=== PATIENT | male | born 1995 | race Caucasian/White ===

== ENCOUNTER 2019-03-24 18:31 | Emergency (ER) | payer OTHER ==
[2019-03-24 18:39] VITALS: BP 122/76; PULSE 91; RESP 20; TEMP 98.4
[2019-03-24] MEDS ORDERED: IBUPROFEN 600 MG TAB PO STA (18:53)
[2019-03-24] MEDS ORDERED: CYCLOBENZAPRINE 10MG STARTER 3 TAB BTL PO STA (18:53)
--- NOTE | 2019-03-24 18:53 | ED ---
Back Pain HPI - General Chief Complaint: Back Pain/Injury Stated Complaint: back injury, [facility] Time Seen by Provider: 03/24/19 18:41 Source: patient Limitations: no limitations - History of Present Illness Initial Comments: 23-year-old male presenting after injuring his back while playing basketball. He states the injury occurred around 5:30 PM today. States he went up to block somebody's shot when he saw them falling so he tried to fall with them. He states he felt a sudden strain in his back. Since then he's been having left lateral lumbar back pain. He denies any numbness, weakness, saddle anesthesia, or inability to ambulate. He took no medications prior to arrival. He denies any medical problems. He states his work, where he was playing basketball, required him to come in. - Related Data Allergies Allergy/AdvReac Type Severity Reaction Status Date / Time No Known Allergies Allergy Verified 03/24/19 18:39 Review of Systems ROS Statement: Those systems with pertinent positive or pertinent negative responses have been documented in the HPI. Review of Systems Constitutional: Denies fever, chills Eyes: Denies change in vision, Denies pain Ears, nose, mouth, throat: Denies headaches, Denies sore throat Cardiovascular: Denies chest pain. Denies palpitations Respiratory: Denies shortness of breath, Denies cough Gastrointestinal: Denies abdominal pain. Denies nausea, vomiting, diarrhea. Genitourinary: Denies hematuria, Denies infections Musculoskeletal: Positive pain, Denies swelling Integumentary: Denies rash Neurological: Denies headache, focal weakness, focal numbness Psychiatric: Denies anxiety, Denies depression Hematologic/Lymphatic: Denies easy bleeding or bruising ROS Other: All systems not noted in ROS Statement are negative. Past Medical History Past Medical History: No Reported History History of Any Multi-Drug Resistant Organisms: None Reported Additional Past Surgical History / Comment(s): nasal teeth Past Psychological History: No Psychological Hx Reported Smoking Status: Never smoker Past Alcohol Use History: None Reported Past Drug Use History: None Reported General Exam - General Exam Comments Initial Comments: General: Awake, alert, No acute Distress HENT: Normocephalic. Atraumatic Eyes: PERRL. EOMI. No scleral icterus. No injected conjunctiva Neck: Full ROM Chest/Lungs: Clear to auscultation bilaterally. No wheezing, rhonchi, or rales Cardiac: Regular rate, rhythm. No murmurs or rubs Abdomen/GI: Soft, nontender, nondistended. No rebound, guarding, or rigidity. Musculoskeletal: Full ROM. TTP at left lateral lumbar region with paraspinal spasm. No midline C/T/L pain. No lower extremity weakness. L1-S2 sensation intact bilaterally. Non-ataxic gait. Pain exacerbated with left straight leg raise. Skin: Warm, dry, intact Neurologic: A/Ox3, no weakness, no sensory deficit, no abnormal gait, no coordination deficit Limitations: no limitations Course Vital Signs 03/24/19 18:34 Temperature 98.4 F Pulse Rate 91 Respiratory 20 Rate Blood Pressure 122/76 O2 Sat by Pulse 98 Oximetry Medical Decision Making - Medical Decision Making 3-year-old male presenting with back pain after playing basketball. On initial exam the patient is awake, alert, no acute distress. VSS. Patient has no midline back pain, did not have any direct trauma to his back, has no symptoms concerning for cauda equina syndrome such as saddle anesthesia or bowel or bladder retention. His physical exam is unremarkable except for his paralumbar spasm. No imaging indicated at this time. I discussed with the patient returning to the emergency department should he develop lower extremity weakness or numbness, inability to urinate or move his bowels, or have any saddle anesthesia. Patient verbalized understanding and was agreeable to plan. He was given a Flexeril starter pack and Motrin while in the department. He was also provided with a work note and documentation to remain off physical activity for the next 2 days. He was instructed not to drive or operate heavy machinery while taking the Flexeril. Disposition Clinical Impression: Strain of lumbar region Disposition: HOME SELF-CARE Condition: Poor Instructions (If sedation given, give patient instructions): Acute Low Back Pain (ED) Additional Instructions: Return to emergency department if you have weakness in her lower legs, numbness, or you have are unable to urinate or have a bowel movement Is patient prescribed a controlled substance at d/c from ED?: No Referrals: Mary Ann Reid DO [Primary Care Provider] - 1-2 days
== END 2019-03-24 19:06 | disposition home or self-care (01) ==
LOC: EC 18:31
DX: S39.012A Strain of muscle, fascia and tendon of lower back, initial encounter (principal); X58.XXXA Exposure to other specified factors, initial encounter; Y93.67 Activity, basketball; Y92.89 Other specified places as the place of occurrence of the external cause
CPT/HCPCS: 99283

== ENCOUNTER 2019-10-12 17:36 | Emergency (ER) | payer OTHER ==
[2019-10-12 17:40] VITALS: RESP 18
[2019-10-12] MEDS ORDERED: ACETAMINOPHEN TAB 500 MG TAB PO STA (18:20)
--- NOTE | 2019-10-12 18:24 | ED ---
General Adult HPI - General Chief complaint: Nausea/Vomiting/Diarrhea Stated complaint: dehyration Time Seen by Provider: 10/12/19 17:50 Source: patient, RN notes reviewed Mode of arrival: ambulatory Limitations: no limitations - History of Present Illness Initial comments: 24-year-old male presents to the emergency department for a chief complaint of s ore throat. Patient states that he has had a sore throat since yesterday. States that the sore throat did improve today. States he has also been very congested. Patient states he had a fever of 101 last night and this morning it was 103. Patient took 800 mg of Motrin prior to arrival. Patient admits to mild cough. Patient had some mild chest pain yesterday that has improved today. Patient has no other complaints at this time including shortness of breath, abdominal pain, nausea or vomiting, headache, or visual changes. - Related Data Previous Rx's Medication Instructions Recorded Ondansetron [Zofran ODT] 4 mg PO Q8HR PRN #15 tab 10/12/19 Allergies Allergy/AdvReac Type Severity Reaction Status Date / Time No Known Allergies Allergy Verified 10/12/19 17:40 Review of Systems ROS Statement: Those systems with pertinent positive or pertinent negative responses have been documented in the HPI. ROS Other: All systems not noted in ROS Statement are negative. Past Medical History Past Medical History: No Reported History History of Any Multi-Drug Resistant Organisms: None Reported Additional Past Surgical History / Comment(s): nasal surgery, teeth pulled Past Psychological History: No Psychological Hx Reported Smoking Status: Never smoker Past Alcohol Use History: None Reported Past Drug Use History: None Reported General Exam Limitations: no limitations General appearance: alert, in no apparent distress Head exam: Present: atraumatic, normocephalic, normal inspection Eye exam: Present: normal appearance, PERRL, EOMI. Absent: scleral icterus, conjunctival injection, periorbital swelling ENT exam: Present: normal exam, normal oropharynx (Patient has had tonsillectomy. Throat is mildly erythematous.), mucous membranes moist, TM's normal bilaterally, normal external ear exam Neck exam: Present: normal inspection, full ROM. Absent: tenderness, meningismus, lymphadenopathy Respiratory exam: Present: normal lung sounds bilaterally. Absent: respiratory distress, wheezes, rales, rhonchi, stridor Cardiovascular Exam: Present: regular rate, normal rhythm, normal heart sounds. Absent: systolic murmur, diastolic murmur, rubs, gallop, clicks GI/Abdominal exam: Present: soft, normal bowel sounds. Absent: distended, tenderness, guarding, rebound, rigid Neurological exam: Present: alert Psychiatric exam: Present: normal affect, normal mood Course Vital Signs 10/12/19 17:38 Temperature 99.8 F H Pulse Rate 88 Respiratory 18 Rate Blood Pressure 133/80 O2 Sat by Pulse 98 Oximetry EKG Findings - EKG Comments: EKG Findings:: Normal sinus rhythm, ventricular rate 74, NC interval 138, QTC 426 Medical Decision Making - Medical Decision Making Patient presents with a low-grade fever of 99.8. He is well-appearing, nontoxic. Denies any neck stiffness or pain. Physical exam is unremarkable. Oropharynx minimally erythematous. There is some postnasal drip noted. No tonsillar exudates. Lungs are clearbilaterally. No nuchal rigidity or neck stiffness. Influenza and strep were negative. Chest x-ray shows a normal chest. EKG was obtained which shows a normal sinus rhythm with a ventricular rate of 74. Patient reevaluated. He does feel a little better after given Tylenol. Discussed with patient that he likely has a viral syndrome. He is also some nausea so will be given Zofran to help remain hydrated. Discussed following up with primary care in 1-2 days. Discussed with patient to monitor himself and if he is not improving in next couple days to return to the emergency department or to return if he has having worsening symptoms prior to that time. - Lab Data Lab Results 10/12/19 10/12/19 Range/Units 18:17 18:17 Influenza Type A RNA Not Detected (Not Detectd) Influenza Type B (PCR) Not Detected (Not Detectd) Group A Strep Rapid Negative (Negative) Disposition Clinical Impression: Viral syndrome Disposition: HOME SELF-CARE Condition: Good Instructions (If sedation given, give patient instructions): Viral Syndrome (ED) Additional Instructions: Please try small sips of fluids to stay hydrated such as Gatorade. Take Zofran as needed for nausea. Alternate Motrin and Tylenol up to every 3 hours as needed for fever. You can take up to 800 mg of Motrin at a time or up to 1000 mg of Tylenol. If you're having worsening symptoms over the next couple days or if symptoms do not improve return to the emergency department for further evaluation. Prescriptions: Ondansetron [Zofran ODT] 4 mg PO Q8HR PRN #15 tab PRN Reason: Nausea Is patient prescribed a controlled substance at d/c from ED?: No Referrals: Mary Ann Reid DO [Primary Care Provider] - 1-2 days Time of Disposition: 19:20
--- NOTE | 2019-10-12 18:45 | XR ---
EXAMINATION TYPE: XR chest 2V DATE OF EXAM: 10/12/2019 COMPARISON: NONE HISTORY: Epigastric pain TECHNIQUE: Frontal and lateral views of the chest are obtained. FINDINGS: Heart and mediastinum are normal. Lungs are clear. Diaphragm is normal. Bony thorax appear s normal. IMPRESSION: Normal chest. Normal heart.
[2019-10-12] MEDS ORDERED: ONDANSETRON 4 MG ODT STARTER PACK 2 TAB BTL PO STA (19:17)
[2019-10-12 19:41] VITALS: BP 132/76; PULSE 86; TEMP 98.6
== END 2019-10-12 19:41 | disposition home or self-care (01) ==
LOC: EC 17:36
DX: B34.9 Viral infection, unspecified (principal)
CPT/HCPCS: 93005; 87081; 87430; 87502; 71046; 99284; S0119

== ENCOUNTER → 2020-01-15 | Outpatient (CLI) | payer OTHER ==
[2020-01-15 17:07] LABS: Basophils % (A) 0 %; Eosinophils # (A) 0.1 k/uL (0-0.7); Eosinophils % (A) 1 %; HCT 43.6 % (39.0-53.0); HGB 14.2 gm/dL (13.0-17.5); Lymphocytes # (A) 1.8 k/uL (1.0-4.8); Lymphocytes % (A) 34 %; MCH 28.8 pg (25.0-35.0); MCHC 32.7 g/dL (31.0-37.0); MCV 88.1 fL (80.0-100.0); Mean Platelet Volume 7.7; Monocytes # (A) 0.3 k/uL (0-1.0); Monocytes % (A) 6 %; Neutrophils % (A) 56 %; Platelet Count 199 k/uL (150-450); RBC 4.95 m/uL (4.30-5.90); RDW 13.6 % (11.5-15.5); WBC 5.3 k/uL (3.8-10.6)
[2020-01-16 00:31] LABS: African American GFR (CKD) 122.4 (60.0-200.0); Albumin 4.8 g/dL (3.80-4.90); Albumin/Globulin Ratio 2.67 (1.60-3.17); Anion Gap 7.9 mmol/L (4.00-12.00); Calcium 9.6 mg/dL (8.7-10.3); Carbon Dioxide 30.1 mmol/L (21.6-31.8); Globulin 1.8 g/dL (1.6-3.3); Non-African American GFR(CKD) 105.6 (60.0-200.0); Potassium 4.2 mmol/L (3.5-5.5); Total Bilirubin 0.5 mg/dL (0.2-1.2); Total Protein 6.6 g/dL (6.2-8.2)
[2020-01-16 02:20] LABS: Hepatitis A Antibody IgM Non-Reactive (Non-Reactive); Hepatitis B Core IgM Non-Reactive (Non-Reactive); Hepatitis B Surface Antigen Non-Reactive (Non-Reactive); Hepatitis C IgG Antibody Non-Reactive (Non-Reactive)
[2020-01-16 08:02] LABS: HIV 1 AB Non-Reactive (Non-Reactive); HIV 2 AB Non-Reactive (Non-Reactive); HIV AB P24 Non-Reactive (Non-Reactive); HIV P24 AG Non-Reactive (Non-Reactive)
== END | disposition home or self-care (01) ==
LOC: LABWHC1 16:21
PROVIDERS: ATTEND Student in an Organized Health Care Education/Training Program
DX: L40.0 Psoriasis vulgaris (principal)
CPT/HCPCS: 36415; 80053; 80074; 85025; 86480; 87390

== ENCOUNTER 2020-09-15 04:07 | Emergency (ER) | payer OTHER ==
--- NOTE | 2020-09-15 05:53 | ED ---
[facility] - General Chief complaint: ENT Stated complaint: Sore Throat, Cough Time Seen by Provider: 09/15/20 04:28 Source: patient Mode of arrival: ambulatory - History of Present Illness complaint: sore throat -: days(s) Location: throat Severity: mild Quality: burning Consistency: constant Improves with: none Worsens with: none Associated Symptoms: sore throat - Related Data Previous Rx's Medication Instructions Recorded Ondansetron [Zofran ODT] 4 mg PO Q8HR PRN #15 tab 10/12/19 Allergies Allergy/AdvReac Type Severity Reaction Status Date / Time No Known Allergies Allergy Verified 09/15/20 04:24 Review of Systems ROS Statement: Those systems with pertinent positive or pertinent negative responses have been documented in the HPI. ROS Other: All systems not noted in ROS Statement are negative. Constitutional: Denies: fever, chills ENT: Reports: throat pain Respiratory: Denies: cough, dyspnea Cardiovascular: Denies: chest pain, palpitations Gastrointestinal: Reports: nausea, vomiting. Denies: abdominal pain, diarrhea Genitourinary: Denies: dysuria, hematuria Musculoskeletal: Denies: back pain Skin: Denies: rash Neurological: Denies: headache, weakness, numbness Past Medical History Past Medical History: No Reported History History of Any Multi-Drug Resistant Organisms: None Reported Additional Past Surgical History / Comment(s): nasal surgery deviated septum, teeth pulled (5) Past Psychological History: No Psychological Hx Reported Smoking Status: Never smoker Past Alcohol Use History: None Reported Past Drug Use History: None Reported General Exam General appearance: alert, in no apparent distress Head exam: Present: atraumatic, normocephalic Eye exam: Present: normal appearance. Absent: scleral icterus, conjunctival injection ENT exam: Present: mucous membranes moist, TM's normal bilaterally, other (cobblestoning of the pharynx) Neck exam: Present: normal inspection, full ROM, lymphadenopathy. Absent: tenderness Respiratory exam: Present: normal lung sounds bilaterally. Absent: respiratory distress, wheezes, rales, rhonchi, stridor Cardiovascular Exam: Present: regular rate, normal rhythm, normal heart sounds. Absent: systolic murmur, diastolic murmur, rubs, gallop GI/Abdominal exam: Present: soft. Absent: distended, tenderness, guarding, rebound Skin exam: Present: warm, dry, intact, normal color. Absent: rash Course Vital Signs 09/15/20 09/15/20 04:18 06:17 Temperature 98.7 F 98.8 F Pulse Rate 76 98 Respiratory 19 18 Rate Blood Pressure 156/81 130/86 O2 Sat by Pulse 100 96 Oximetry Medical Decision Making - Lab Data Lab Results 09/15/20 09/15/20 Range/Units 05:00 05:59 Coronavirus (PCR) Not Detected (Not Detected) Group A Strep Rapid Negative (Negative) Disposition Clinical Impression: Upper respiratory infection Disposition: HOME SELF-CARE Condition: Good Instructions (If sedation given, give patient instructions): Upper Respiratory Infection (ED) Is patient prescribed a controlled substance at d/c from ED?: No Referrals: Tom Urban MD [Primary Care Provider] - 1-2 days
[2020-09-15 06:22] VITALS: BP 130/86; PULSE 98; RESP 18; TEMP 98.8
== END 2020-09-15 06:22 | disposition home or self-care (01) ==
LOC: EC 04:07
DX: J06.9 Acute upper respiratory infection, unspecified (principal); Z20.828 Contact with and (suspected) exposure to other viral communicable diseases
CPT/HCPCS: 87081; 87430; 99283; U0003

== ENCOUNTER 2020-10-20 05:45 | Emergency (ER) | payer OTHER ==
[2020-10-20 05:53] VITALS: RESP 18; TEMP 98.9
[2020-10-20] MEDS ORDERED: LIDOCAINE 1% INJ 10MG/ML (20 ML MDV) SQ ONE (06:24)
[2020-10-20] MEDS ORDERED: ACET/COD 300 MG/30 MG STARTER PACK 6 TAB BTL PO STA ×2 (06:25→07:58)
--- NOTE | 2020-10-20 06:30 | ED ---
General Adult HPI - General Chief complaint: Skin/Abscess/Foreign Body Stated complaint: hand infection Time Seen by Provider: 10/20/20 06:03 Source: patient, RN notes reviewed, old records reviewed Mode of arrival: ambulatory Limitations: no limitations - History of Present Illness Initial comments: 25-year-old male presents emergency department today with infection of the left hand. Patient reports that he has had redness swelling and irritation to the left hyperthenar eminence. He questions if it was initially related to a splinter. Patient states he sweats to urgent care E times this week. He was initially prescribed Bactrim is been taking them for the past 4 days. Patient states that yesterday he returned in the trying to drain it but were unable to. He reports increased with pain and swelling to the hand. Patient reports he is right-handed. - Related Data Home Medications Medication Instructions Recorded Confirmed Adalimumab [Humira Crohn's] 40 mg SQ Q14D 10/20/20 10/20/20 Fluocinolone Acetonide [Lidex Soln] 1 applic TOPICAL DAILY PRN 10/20/20 10/20/20 Sulfamethox-Tmp 800-160Mg [Bactrim 1 tab PO BID 10/20/20 10/20/20 DS 800-160 mg] Previous Rx's Medication Instructions Recorded Acetaminophen-Codeine 300-30mg 1 tab PO Q6H PRN 3 Days #12 tablet 10/20/20 [Tylenol w/codeine #3] Sulfamethox-Tmp 800-160Mg [Bactrim 2 tab PO Q12HR #40 tab 10/20/20 DS 800-160 mg] Allergies Allergy/AdvReac Type Severity Reaction Status Date / Time No Known Allergies Allergy Verified 10/20/20 07:31 Review of Systems ROS Statement: Those systems with pertinent positive or pertinent negative responses have been documented in the HPI. ROS Other: All systems not noted in ROS Statement are negative. Past Medical History Past Medical History: No Reported History History of Any Multi-Drug Resistant Organisms: None Reported Additional Past Surgical History / Comment(s): nasal surgery deviated septum, teeth pulled (5) Past Psychological History: No Psychological Hx Reported Smoking Status: Never smoker Past Alcohol Use History: None Reported Past Drug Use History: None Reported General Exam - General Exam Comments Initial Comments: 25-year-old male. No distress Limitations: no limitations General appearance: alert, in no apparent distress Head exam: Present: atraumatic, normocephalic, normal inspection Eye exam: Present: normal appearance, PERRL, EOMI. Absent: scleral icterus, conjunctival injection, periorbital swelling ENT exam: Present: normal exam Neck exam: Present: normal inspection. Absent: tenderness, meningismus, lympha denopathy Respiratory exam: Present: normal lung sounds bilaterally. Absent: respiratory distress, wheezes, rales, rhonchi, stridor Cardiovascular Exam: Present: regular rate, normal rhythm, normal heart sounds. Absent: systolic murmur, diastolic murmur, rubs, gallop, clicks GI/Abdominal exam: Present: soft, normal bowel sounds. Absent: distended, tenderness, guarding, rebound, rigid Extremities exam: Present: normal inspection, full ROM, normal capillary refill. Absent: tenderness, pedal edema, joint swelling, calf tenderness Left Elbow exam: Present: normal inspection, full ROM Forearm Wrist exam: Present: normal inspection, full ROM Hand Wrist exam: Present: tenderness, swelling, erythema (Tenderness swelling erythema over the left hyperthenar eminence). Absent: normal inspection, full ROM (Patient reports pain with flexion of the left fourth and fifth digit) Neuro motor exam: Present: wrist extension intact, thumb IP flexion intact, thumb adduction intact, fingers 2-5 abduction intact Neurosensory exam: Present: 2-point discrimination Back exam: Present: normal inspection Neurological exam: Present: alert, oriented X3, CN II-XII intact Psychiatric exam: Present: normal affect, normal mood Course Vital Signs 10/20/20 05:48 Temperature 98.9 F Pulse Rate 85 Respiratory 18 Rate Blood Pressure 148/77 O2 Sat by Pulse 100 Oximetry Procedures - Schwertner Protocol (Time Out) Procedure Performed:: incision drainage hand Performing Provider: Bebe Cleveland Timeout Date: 10/20/20 Timeout Time: 07:33 Patient Identification (2 identifiers required): Chart, Verbal Patient/Legal [employer] has Confirmed: Identity, Site, Procedure Site: L hand Site Marked: Yes Site Verified With Patient/Guardian: Yes Final Confirmation: Procedure, Site - Incision & Drainage Indication: L hand Site: upper extremity Size (cm): 3 Anesthetic Used: lidocaine 1% Amount (mLs): 5 I&D Cleaning Method: Iodine Sterile Field Used?: Yes Scalpel Used: #11 Needle Aspiration Performed?: No Irrigation Performed?: Yes I&D Drainage Obtained: Pus, Blood Culture Obtained?: Yes Patient Tolerated Procedure: well, no complications Medical Decision Making - Medical Decision Making 25-year-old male presents emergency Department with 4 days left hand pain and swelling. He believes he initially thought it was related to a splinter embedded within the hand. The same is evidence of cellulitis over the hyperthenar eminence reports some pain with flexion and extension of the fourth digit. He complains of some numbness. Patient states he feels the need to be drained. He's been on Bactrim for 4 days one dose twice a day. At this time labs reviewed. Is given 2 g of Rocephin in the emergency department. Patient's hand x-ray shows correlate for cellulitis. Do question a small possible foreign body within the soft tissue. Patient's case was discussed with Dr. Vargas who also examined the Patient and recommended incision and drainage. Patient had incision and drainage completed and proximally 4 mL of Prelone was removed from the hand. Patient tolerated the procedure well. Discussed following up with orthopedic hand specialist within the week. We'll give the Patient pain medication and discharged home. - Lab Data Result diagrams: 10/20/20 06:44 10/20/20 06:44 Lab Results 10/20/20 10/20/20 Range/Units 06:44 06:44 WBC 9.8 (3.8-10.6) k/uL RBC 4.58 (4.30-5.90) m/uL Hgb 13.8 (13.0-17.5) gm/dL Hct 40.0 (39.0-53.0) % MCV 87.3 (80.0-100.0) fL MCH 30.2 (25.0-35.0) pg MCHC 34.6 (31.0-37.0) g/dL RDW 13.0 (11.5-15.5) % Plt Count 221 (150-450) k/uL MPV 6.8 Neutrophils % 78 % Lymphocytes % 13 % Monocytes % 6 % Eosinophils % 1 % Basophils % 0 % Neutrophils # 7.6 (1.3-7.7) k/uL Lymphocytes # 1.3 (1.0-4.8) k/uL Monocytes # 0.6 (0-1.0) k/uL Eosinophils # 0.1 (0-0.7) k/uL Basophils # 0.0 (0-0.2) k/uL Sodium 139 (137-145) mmol/L Potassium 3.9 (3.5-5.1) mmol/L Chloride 105 (98-107) mmol/L Carbon Dioxide 30 (22-30) mmol/L Anion Gap 4 mmol/L BUN 9 (9-20) mg/dL Creatinine 0.79 (0.66-1.25) mg/dL Est GFR (CKD-EPI)AfAm >90 (>60 ml/min/1.73 sqM) Est GFR (CKD-EPI)NonAf >90 (>60 ml/min/1.73 sqM) Glucose 105 H (74-99) mg/dL Calcium 9.0 (8.4-10.2) mg/dL - Radiology Data Radiology results: report reviewed Left hand x-ray Correlate for cellulitis. Disposition Clinical Impression: Abscess of left hand Disposition: HOME SELF-CARE Condition: Good Instructions (If sedation given, give patient instructions): Abscess Incision and Drainage (ED), Abscess (ED) Additional Instructions: Patient must keep the hand covered for the next day. Patient can take it off and apply warm compresses to see if there is any further drainage. Patient should take antibiotic as prescribed and use pain medicine as directed. Return to the ED if any alarming signs or symptoms occur. Recommended close follow-up with orthopedic hand specialist. Prescriptions: Sulfamethox-Tmp 800-160Mg [Bactrim DS 800-160 mg] 2 tab PO Q12HR #40 tab Acetaminophen-Codeine 300-30mg [Tylenol w/codeine #3] 1 tab PO Q6H PRN 3 Days #12 tablet PRN Reason: Pain Is patient prescribed a controlled substance at d/c from ED?: No Referrals: Tom Urban MD [Primary Care Provider] - 1-2 days Fred Dupree DO [Doctor of Osteopathic Medicine] - 1-2 days Time of Disposition: 07:57
[2020-10-20 06:54] LABS: Basophils % (A) 0 %; Eosinophils # (A) 0.1 k/uL (0-0.7); Eosinophils % (A) 1 %; HGB 13.8 gm/dL (13.0-17.5); Lymphocytes # (A) 1.3 k/uL (1.0-4.8); Lymphocytes % (A) 13 %; MCH 30.2 pg (25.0-35.0); MCHC 34.6 g/dL (31.0-37.0); MCV 87.3 fL (80.0-100.0); Mean Platelet Volume 6.8; Monocytes # (A) 0.6 k/uL (0-1.0); Monocytes % (A) 6 %; Neutrophils # (A) 7.6 k/uL (1.3-7.7); Neutrophils % (A) 78 %; Platelet Count 221 k/uL (150-450); RBC 4.58 m/uL (4.30-5.90); WBC 9.8 k/uL (3.8-10.6)
[2020-10-20 07:11] LABS: African American GFR (CKD) >90 (>60 ml/min/1.73 sqM); Anion Gap 4 mmol/L; Blood Urea Nitrogen 9 mg/dL (9-20); Carbon Dioxide 30 mmol/L (22-30); Chloride 105 mmol/L (98-107); Glucose 105 mg/dL (74-99); Non-African American GFR(CKD) >90 (>60 ml/min/1.73 sqM); Potassium 3.9 mmol/L (3.5-5.1); Sodium 139 mmol/L (137-145)
--- NOTE | 2020-10-20 07:28 | XR ---
Left hand HISTORY: Infection 3 views left hand Soft tissue swelling is noted. Bone mineralization, joint spaces and alignment are maintained. Digits are flexed. No radiopaque foreign body evident. No periostitis to suggest osteomyelitis. IMPRESSION: Correlate for cellulitis.
[2020-10-20 08:13] VITALS: BP 125/76; PULSE 77
== END 2020-10-20 08:12 | disposition home or self-care (01) ==
LOC: EC 05:45
DX: L02.512 Cutaneous abscess of left hand (principal); Z79.899 Other long term (current) drug therapy
CPT/HCPCS: 36415; 80048; 85025; 87040; 87070; 87205; 73130; 99284; 10060; 96365; J0696; J2001

== ENCOUNTER 2020-10-21 10:41 | Inpatient (IN) | payer OTHER ==
[2020-10-21] MEDS ORDERED: SODIUM CHLORIDE 0.9% 1,000 ML IV ONE (11:15)
[2020-10-21] MEDS ORDERED: CLINDAMYCIN 600 MG in DEXTROSE 5% IN WATER 50 ML IVPB STA ×2 (11:15)
[2020-10-21] MEDS ORDERED: SODIUM CHLORIDE 0.9% 500 ML 500 ML IV ONE (11:15)
[2020-10-21] MEDS: SODIUM CHLORIDE 0.9% 1,000 ML IV SCH (11:52)
[2020-10-21] MEDS ORDERED: HYDROmorphone 0.5 MG/0.5 ML SYRINGE IVP STA (11:54)
[2020-10-21 11:58] LABS: Basophils % (A) 0 %; Eosinophils # (A) 0.1 k/uL (0-0.7); Eosinophils % (A) 1 %; Lymphocytes # (A) 1.5 k/uL (1.0-4.8); Lymphocytes % (A) 15 %; MCH 28.8 pg (25.0-35.0); MCHC 33.3 g/dL (31.0-37.0); MCV 86.4 fL (80.0-100.0); Mean Platelet Volume 6.8; Monocytes # (A) 0.6 k/uL (0-1.0); Monocytes % (A) 6 %; Neutrophils % (A) 77 %; Platelet Count 234 k/uL (150-450); RBC 4.87 m/uL (4.30-5.90); RDW 13.2 % (11.5-15.5); WBC 10.3 k/uL (3.8-10.6)
[2020-10-21 12:05] LABS: ALT 35 U/L (4-49); AST 27 U/L (17-59); African American GFR (CKD) >90 (>60 ml/min/1.73 sqM); Albumin 4.3 g/dL (3.5-5.0); Alkaline Phosphatase 69 U/L (38-126); Anion Gap 7 mmol/L; Blood Urea Nitrogen 11 mg/dL (9-20); Calcium 9.3 mg/dL (8.4-10.2); Carbon Dioxide 27 mmol/L (22-30); Chloride 103 mmol/L (98-107); Glucose 107 mg/dL (74-99); Non-African American GFR(CKD) >90 (>60 ml/min/1.73 sqM); Potassium 4.2 mmol/L (3.5-5.1); Sodium 137 mmol/L (137-145); Total Protein 7.1 g/dL (6.3-8.2)
[2020-10-21] MEDS ORDERED: VANCOMYCIN IV PER PHARMACY 1 EACH MISC MISCELLANE PRN (12:40)
[2020-10-21] MEDS ORDERED: NALOXONE 0.4 MG/ML 1 ML VIAL IV PRN (12:50)
--- NOTE | 2020-10-21 12:52 | ED ---
Skin/Abscess/FB HPI - General Source: patient Mode of arrival: ambulatory Limitations: no limitations <Kesha Palmer - Last Filed: 10/21/20 13:35> <Tabitha Cox - Last Filed: 10/24/20 00:44> - General Chief complaint: Skin/Abscess/Foreign Body Stated complaint: revisit yesterday hand infection Time Seen by Provider: 10/21/20 10:48 - History of Present Illness Initial comments: 25-year-old male presenting for revisit for left hand abscess. Patient states the hand abscess which she is unsure how it originated whether it be from insect bite or sliver states he noticed it last week. He states he went initially to urgent care but states it is only been worsening he states he has been on Bactrim for the past week. He states he was evaluated yesterday and told to double the Bactrim. patient also had an I&D performed. patient states he has now been spiking fevers and the redness is streaking to almost his armpit. pt denies additional complaints. appears nontoxic on arrival. denies IVDU. (Kesha Palmer) - Related Data Home Medications Medication Instructions Recorded Confirmed Adalimumab [Humira Crohn's] 40 mg SQ Q14D 10/20/20 10/21/20 Fluocinolone Acetonide [Lidex Soln] 1 applic TOPICAL DAILY PRN 10/20/20 10/21/20 Previous Rx's Medication Instructions Recorded Acetaminophen-Codeine 300-30mg 1 tab PO Q6H PRN 3 Days #12 tablet 10/20/20 [Tylenol w/codeine #3] Sulfamethox-Tmp 800-160Mg [Bactrim 2 tab PO Q12HR #40 tab 10/20/20 DS 800-160 mg] Allergies Allergy/AdvReac Type Severity Reaction Status Date / Time gluten Allergy Nausea & Verified 10/21/20 12:22 Vomiting & Diarrhea vancomycin Allergy Itching Verified 10/23/20 05:19 Review of Systems ROS Other: All systems not noted in ROS Statement are negative. <Kesha Palmer - Last Filed: 10/21/20 13:35> ROS Other: All systems not noted in ROS Statement are negative. <Tabitha Cox - Last Filed: 10/24/20 00:44> ROS Statement: Those systems with pertinent positive or pertinent negative responses have been documented in the HPI. Past Medical History Past Medical History: No Reported History History of Any Multi-Drug Resistant Organisms: None Reported Additional Past Surgical History / Comment(s): nasal surgery deviated septum, teeth pulled (5) Past Psychological History: No Psychological Hx Reported Smoking Status: Never smoker Past Alcohol Use History: None Reported Past Drug Use History: None Reported <Kesha Palmer - Last Filed: 10/21/20 13:35> General Exam Limitations: no limitations <Kesha Palmer - Last Filed: 10/21/20 13:35> - General Exam Comments Initial Comments: General: The patient is awake and alert, in no distress, and does not appear acutely ill. Eye: Pupils are equal, round and reactive to light, extra-ocular movements are intact. No nystagmus. There is normal conjunctiva bilaterally. No signs of icterus. Ears, nose, mouth and throat: There are moist mucous membranes and no oral lesions. Neck: The neck is supple, there is no tenderness or JVD. Musculoskeletal: Normal ROM, no tenderness. Strength 5/5. Sensation intact. Radial pulses equal bilaterally 2+. Neurological: A&O x 3. CN II-XII intact, There are no obvious motor or sensory deficits. Coordination appears grossly intact. Speech is normal. Skin: Skin is warm and dry and no rashes 1.5x1.5cm abscess, with incision in x fashion. no active drainage, very red around abscess with spread proximally. streaking along the ulnar aspect past elbow up to mid humerus, Psychiatric: Cooperative, appropriate mood & affect, normal judgment. (Kesha Palmer) Course Vital Signs 10/21/20 10/21/20 10/21/20 10:43 13:03 13:20 Temperature 99 F 99.1 F Pulse Rate 88 70 Respiratory 18 18 Rate Blood Pressure 151/89 147/78 O2 Sat by Pulse 97 99 Oximetry Procedures - Incision & Drainage Consent Obtained: verbal consent Indication: abscess Site: hand Size (cm): 0 (1.5) Anesthetic Used: lidocaine 1% Amount (mLs): 1 I&D Cleaning Method: Iodine Sterile Field Used?: No Scalpel Used: #11 I&D Drainage Obtained: Blood Patient Tolerated Procedure: well, no complications <Kesha Palmer - Last Filed: 10/21/20 13:35> Medical Decision Making - Lab Data Result diagrams: 10/21/20 11:30 10/21/20 11:30 <Kesha Palmer - Last Filed: 10/21/20 13:35> - Lab Data Result diagrams: 10/23/20 07:16 10/21/20 11:30 <Tabitha Cox - Last Filed: 10/24/20 00:44> - Medical Decision Making Labs stable. pt doesnt appear toxic. failed outpatient abx. concern given location hand. patient will be admitted for failed outpatient antibiotics. i consulted orthopedic PA Misty gómez who recommended adding vancomycin and admitting for possible drainage in OR tomorrow. patient agreeable to admission. misty gómez also recommended attempting to re-open yesterdays I&D and warm compresses to the area. Dr. Cox is agreeable to care plan and discharge. (Kesha Palmer) I was available for consultation in the emergency department. The history and physical exam were done by the midlevel provider. I was consulted for this patients care. I reviewed the case with the midlevel provider and based on their presentation of the patient, I agree with the assessment, medical decision making and plan of care as documented. Chart was dictated using [employer] dictation software. Attempts were made to correct any dictation errors however some typographical errors may persist. Patient was seen during a national state of emergency due to the Covid-19 pandemic. (Tabitha Cox) - Lab Data Lab Results 10/21/20 10/21/20 10/21/20 Range/Units 11:30 11:30 11:30 WBC 10.3 (3.8-10.6) k/uL RBC 4.87 (4.30-5.90) m/uL Hgb 14.0 (13.0-17.5) gm/dL Hct 42.0 (39.0-53.0) % MCV 86.4 (80.0-100.0) fL MCH 28.8 (25.0-35.0) pg MCHC 33.3 (31.0-37.0) g/dL RDW 13.2 (11.5-15.5) % Plt Count 234 (150-450) k/uL MPV 6.8 Neutrophils % 77 % Lymphocytes % 15 % Monocytes % 6 % Eosinophils % 1 % Basophils % 0 % Neutrophils # 8.0 H (1.3-7.7) k/uL Lymphocytes # 1.5 (1.0-4.8) k/uL Monocytes # 0.6 (0-1.0) k/uL Eosinophils # 0.1 (0-0.7) k/uL Basophils # 0.0 (0-0.2) k/uL Sodium 137 (137-145) mmol/L Potassium 4.2 (3.5-5.1) mmol/L Chloride 103 (98-107) mmol/L Carbon Dioxide 27 (22-30) mmol/L Anion Gap 7 mmol/L BUN 11 (9-20) mg/dL Creatinine 0.95 (0.66-1.25) mg/dL Est GFR (CKD-EPI)AfAm >90 (>60 ml/min/1.73 sqM) Est GFR (CKD-EPI)NonAf >90 (>60 ml/min/1.73 sqM) Glucose 107 H (74-99) mg/dL Plasma Lactic Acid Brian 0.6 L (0.7-2.0) mmol/L Calcium 9.3 (8.4-10.2) mg/dL Total Bilirubin 1.0 (0.2-1.3) mg/dL AST 27 (17-59) U/L ALT 35 (4-49) U/L Alkaline Phosphatase 69 (38-126) U/L Total Protein 7.1 (6.3-8.2) g/dL Albumin 4.3 (3.5-5.0) g/dL Disposition Is patient prescribed a controlled substance at d/c from ED?: No Time of Disposition: 13:40 Decision to Admit Reason: Admit from EC Decision Date: 10/21/20 Decision Time: 13:40 <Kesha Palmer - Last Filed: 10/21/20 13:35> <Tabitha Cox - Last Filed: 10/24/20 00:44> Clinical Impression: Abscess of hand, left, Lymphangitis Disposition: ADMITTED IP TO THIS [facility] Condition: Stable
[2020-10-21] MEDS ORDERED: VANCOMYCIN 1,750 MG in SODIUM CHLORIDE 0.9% 500 ML 500 ML IVPB ONE (13:00)
[2020-10-21] MEDS ORDERED: LIDOCAINE 1% INJ 10MG/ML (20 ML MDV) SQ ONE (13:24)
[2020-10-21] MEDS: HYDROmorphone 0.5 MG/0.5 ML SYRINGE IVP PRN ×2 (14:28→18:10)
--- NOTE | 2020-10-21 17:06 | P.HPOR ---
History of Present Illness H&P Date: 10/21/20 Chief Complaint: Left hand abscess This is a 25-year-old male presented to the emergency department today with continued pain and swelling to the left hand. He has been seen by urgent care and the emergency department on 2 occasions for her back treatment and bedside I&D of the abscess to the palm of his left hand. He states that he noticed some swelling to the hand proximally 5 days ago. It has gotten progressively worse. He has been running fevers at home and has noticed red streaking up the arm. He is admitted to our service for IV antibiotic and further surgical evaluation. Past Medical History Past Medical History: No Reported History Additional Past Medical History / Comment(s): psoriasis History of Any Multi-Drug Resistant Organisms: None Reported Additional Past Surgical History / Comment(s): nasal surgery deviated septum, teeth pulled (5) Past Psychological History: No Psychological Hx Reported Smoking Status: Never smoker Past Alcohol Use History: None Reported Past Drug Use History: None Reported Medications and Allergies Home Medications Medication Instructions Recorded Confirmed Type Acetaminophen-Codeine 300-30mg 1 tab PO Q6H PRN 3 Days #12 tablet 10/20/20 10/21/20 Rx [Tylenol w/codeine #3] Adalimumab [Humira Crohn's] 40 mg SQ Q14D 10/20/20 10/21/20 History Fluocinolone Acetonide [Lidex Soln] 1 applic TOPICAL DAILY PRN 10/20/20 10/21/20 History Sulfamethox-Tmp 800-160Mg [Bactrim 2 tab PO Q12HR #40 tab 10/20/20 10/21/20 Rx DS 800-160 mg] Allergies Allergy/AdvReac Type Severity Reaction Status Date / Time gluten Allergy Nausea & Verified 10/21/20 12:22 Vomiting & Diarrhea Physical Examination This is a pleasant 25-year-old male in no acute distress. He is alert and orien lisa 3. Exam of the left upper extremity reveals an abscess about the ulnar side of his palm. There is no active drainage from the site. There has been incision to the area. He has limited active extension of the fingers secondary to pain. I am able to passively flex and extend the fingers with minimal discomfort. There is redness streaking up the ulnar aspect of the arm to the elbow. Neurovascular status to the upper extremities intact. Capillary refill is less than 3 seconds. Results X-rays taken on 10/20/2020 reveal no acute bony abnormality. No obvious foreign body noted. - Labs Labs: Abnormal Lab Results - Last 24 Hours (Table) 10/21/20 10/21/20 10/21/20 Range/Units 11:30 11:30 11:30 Neutrophils # 8.0 H (1.3-7.7) k/uL Glucose 107 H (74-99) mg/dL Plasma Lactic Acid Brian 0.6 L (0.7-2.0) mmol/L H & H 10/21/20 Range/Units 11:30 Hgb 14.0 (13.0-17.5) gm/dL Hct 42.0 (39.0-53.0) % Result Diagrams: 10/21/20 11:10/21/20 11:30 Assessment and Plan (1) Abscess of left hand Current Visit: Yes Status: Acute Code(s): L02.512 - CUTANEOUS ABSCESS OF LEFT HAND SNOMED Code(s): 62199484928421893 (2) Lymphangitis Current Visit: Yes Status: Acute Code(s): I89.1 - LYMPHANGITIS SNOMED Code(s): 8868360 Plan: The clinical and x-ray findings are discussed with the patient. He is admitted for IV antibiotics. He'll be nothing by mouth tonight after midnight and we will reassess in the morning. He is tentatively scheduled for surgical incision and drainage with irrigation with antibiotic solution left hand. I also ordered K pad for moist heat.
[2020-10-21] MEDS: ONDANSETRON 4 MG/2 ML VIAL IVP PRN (20:22)
[2020-10-21] MEDS ORDERED: VANCOMYCIN 1,750 MG in SODIUM CHLORIDE 0.9% 500 ML 500 ML IVPB SCH (21:00)
[2020-10-22] MEDS: SODIUM CHLORIDE 0.9% 1,000 ML IV SCH ×2 (00:50→15:04)
[2020-10-22] MEDS: PIPERACILLIN-TAZOBACTAM 3.375 GM in SODIUM CHLORIDE 0.9% 100 ML IVPB SCH ×3 (01:17→17:42)
--- NOTE | 2020-10-22 08:11 | P.PN ---
Subjective Progress Note Date: 10/22/20 Principal diagnosis: Left hand abscess. Lymphangitis. This is a 25-year-old male we are following regarding his abscess to the left hand and a descending lymphangitis to the left upper extremity. He had a pretty rough night with a reaction to the vancomycin. He had vomiting and possibly red man syndrome. His antibiotic was switched to Zosyn. No other new complaints today. Vital signs are stable. He has been afebrile since last night. Objective - Vital Signs Vital signs: Vital Signs Temp 97.5 F L 10/22/20 02:00 Pulse 68 10/22/20 02:00 Resp 20 10/22/20 02:00 BP 115/68 10/22/20 02:00 Pulse Ox 98 10/22/20 02:00 Intake & Output 10/21/20 10/22/20 10/22/20 18:59 06:59 18:59 Intake Total 118 Balance 118 Weight 106.594 kg Intake: Oral 118 Other: Voiding Method Toilet # Voids 1 1 - Exam This is a pleasant 25-year-old male in no acute distress. He is alert and oriented 3. Exam of the left upper extremity reveals that he continues to have some mild erythematous streaking up to the elbow. The hand abscess has mild drainage. There is erythema in the surrounding area. Finger motion is slightly improved but continues to have stiffness to the ring and little fingers. Neurovascular status the upper extremity is intact. - Labs CBC & Chem 7: 10/21/20 11:30 10/21/20 11:30 Labs: Abnormal Lab Results - Last 24 Hours (Table) 10/21/20 10/21/20 10/21/20 Range/Units 11:30 11:30 11:30 Neutrophils # 8.0 H (1.3-7.7) k/uL Glucose 107 H (74-99) mg/dL Plasma Lactic Acid Brian 0.6 L (0.7-2.0) mmol/L Assessment and Plan (1) Abscess of left hand Current Visit: Yes Status: Acute Code(s): L02.512 - CUTANEOUS ABSCESS OF LEFT HAND SNOMED Code(s): 55007292218561251 (2) Lymphangitis Current Visit: Yes Status: Acute Code(s): I89.1 - LYMPHANGITIS SNOMED Code(s): 2673496 Plan: The clinical and x-ray findings are discussed with the patient. We are planning surgery today for incision and drainage with irrigation of the wound. He may possibly be discharged home later today or tomorrow with oral antibiotics.
[2020-10-22] MEDS: HYDROmorphone 0.5 MG/0.5 ML SYRINGE IVP PRN ×2 (08:16→14:52)
[2020-10-22] MEDS ORDERED: IV FLUID CONTINUATION 1,000 ML IV ONE (11:42)
[2020-10-22] MEDS: ONDANSETRON 4 MG/2 ML VIAL IVP PRN (11:56)
[2020-10-22] MEDS ORDERED: ceFAZolin 3,000 MG in SODIUM CHLORIDE 0.9% IRRIGATIO 3,000 ML IRRIGATION ONE ×4 (12:23)
[2020-10-22] MEDS ORDERED: PROPOFOL 10 MG/ML 20 ML VIAL IV ONE (12:44)
[2020-10-22] MEDS ORDERED: MIDAZOLAM 2 MG/2 ML VIAL ONE (12:44)
[2020-10-22] MEDS ORDERED: fentaNYL (PF) 50 MCG/ML 2 ML AMP ONE (12:44)
[2020-10-22] MEDS ORDERED: BUPIVACAINE (PF) 0.5% 30 ML VIAL SQ ONE ×2 (13:07)
[2020-10-22] MEDS ORDERED: LACTATED RINGERS 1,000 ML IV ONE ×2 (13:15)
[2020-10-22] MEDS ORDERED: HYDROmorphone 0.5 MG/0.5 ML SYRINGE IVP PRN (13:31)
[2020-10-22] MEDS ORDERED: diphenhydrAMINE 25 MG CAP PO PRN (13:31)
[2020-10-22] MEDS ORDERED: SENNOSIDES-DOCUSATE SODIUM 1 EACH TAB PO PRN (13:31)
[2020-10-22] MEDS ORDERED: hydrOXYzine pamoate 25 MG CAP PO PRN (13:31)
--- NOTE | 2020-10-22 13:51 | P.OP ---
Date of Procedure: 10/22/20 Procedure(s) Performed: PREOPERATIVE DIAGNOSES: 1. Left hand deep abscess 2. Lymphangitis along left forearm to above elbow POSTOPERATIVE DIAGNOSES: 1. Left hand deep abscess 2. Lymphangitis along left forearm to above elbow PROCEDURES PERFORMED: 1. Left hand deep abscess excisional debridement (using hemostat and small rongeur, removing skin, subcutaneous tissue, and fascia) with incision, drainage and pulse lavage irrigation 2. Packing of wound with moistened iodoform gauze ANESTHESIA: Gen. DELICATESSEN DEPARTMENT MANAGER: None COMPLICATIONS: None ESTIMATED BLOOD LOSS: 2 mL DISPOSITION: To post-anesthesia care unit INDICATIONS: Nacho is a 25-year-old male with a history of abscess involving the left hand ulnar volar aspect. There are no signs of flexor tenosynovitis. He presents to the operating room for debridement incision, drainage and irrigation. Consent has been obtained after discussion of the risks of incision and drainage of this abscess as being inclusive of, but not limited to: Bleeding, further infection, scarring, discomfort, blood vessel and/or nerve damage, compartment syndrome, failure to relieve symptoms, persistence or recurrence and/or worsening of symptoms or problems, need for further surgery, , anesthesia risks, and other risks. PROCEDURE: After appropriate consent was obtained, the patient was taken to the operating room placed in the supine position. Anesthesia was initiated, and after confirmation of adequate anesthesia, the patient was carefully positioned. Care was taken to make sure that all pressure points were adequately padded. Prepping and draping were completed in the usual aseptic fashion using ChloraPrep. Timeout was called, confirming patient identity, side, and procedure. Incision approximately 2 cm in size was created along the abscess, which was located on the ulnar volar aspect of the hand but well ulnar to the fifth finger flexor tendon sheath. Incision was carried down just through skin and into subcu tissues where was noted that there was gross pus. The gross pus was removed by extending the incision and gently spreading down to the abscess cavity. The abscess cavity was probed with manual palpation until all areas of the abscess cavity were interrogated. Abscess cavity measured approximately 2 cm x 2 cm in size, with a depth of approximately 1 cm. Cultures were taken. There did not appear to be any extension of the abscess cavity into the deep muscular fascia or the adjacent flexor tendon sheath. Soft tissue tension visibly and palpably improved after drainage of the abscess. Pulsatile lavage was used, delivering 1000 mL of saline within the abscess cavity. During this time, small amount of Hibiclens solution was also applied to the wound surface, allowed to soak into the tissues for 1 minute, and then rinsed off using the pulsatile lavage. Subsequently, hemostasis was obtained using electrocautery but there was no significant bleeding present. Wound was lightly packed with moistened quarter- inch iodoform gauze and sterile dressing was then applied. Patient tolerated the procedure well and taken to recovery room in stable condition. Sponge counts were correct.
[2020-10-22] MEDS: HYDROcodone/APAP 5-325MG 1 EACH TAB PO PRN (16:10)
[2020-10-22] MEDS: HYDROmorphone 1 MG/ML 1 ML SYRINGE IVP PRN ×2 (18:42→23:28)
[2020-10-22] MEDS: DAPTOmycin 500 MG in SODIUM CHLORIDE 0.9% 50 ML IVPB SCH (23:30)
[2020-10-23] MEDS: HYDROmorphone 0.5 MG/0.5 ML SYRINGE IVP PRN (04:32)
[2020-10-23] MEDS: SODIUM CHLORIDE 0.9% 1,000 ML IV SCH ×2 (04:32→12:41)
--- NOTE | 2020-10-23 06:08 | CONS ---
CONSULTATION DATE OF SERVICE: 10/22/2020 REASON FOR CONSULTATION: Left hand abscess. HISTORY OF PRESENT ILLNESS: The patient is a 25-year-old male presenting to the hospital with left hand pain swelling and redness in this patient's whose symptoms have been going on for about a week. The patient denies having any injury to the area that he could remember. He noted the left hand swelling and swollen red and painful. The patient noted the pain to be throbbing, initially 5-6/10 but significantly increased afterwards. The patient has been evaluated in urgent care the day before presentation to the hospital where the patient was started on oral antibiotic however the patient did not have any improvement. The next day he went back to the urgent care where the patient did have attempted drainage on the abscess, however, did not have any improvement with persistent pain, swelling and redness. The patient did present to this facility and on arrival to the ER the patient was afebrile. Did have a low-grade fever of 100.8. The patient did have a normal white count with left shift. Creatinine was normal. The patient did have blood culture obtained which is currently pending. The patient was taken to the OR this afternoon in this patient who is status post drainage of the left hand abscess. The patient was started on vancomycin yesterday. Apparently, the patient did have some itching and tingling sensation. Vancomycin was discontinued. Patient started on Zosyn. Infectious Disease was consulted for further management of antibiotic therapy. REVIEW OF SYSTEMS: Positive points have been mentioned in HPI. Rest of systems are negative. PAST MEDICAL HISTORY: No major illnesses. PAST SURGICAL HISTORY: Surgery for deviated nasal septum and teeth extraction. SOCIAL HISTORY: Denies smoking, drinking, drug use. FAMILY HISTORY: No pertinent findings noted. ALLERGIES: GLUTEN. MEDICATIONS: The patient is currently on [place], Benadryl, Dilaudid, Restoril, Narcan, Zosyn, Senokot. PHYSICAL EXAMINATION: Blood pressure is 132/75, pulse of 85, temperature 98, he is 98% on room air. General description is a young male lying in bed in no distress. No tachypnea or accessory muscle of respiration use. HEENT: Examination shows no pallor or scleral icterus. Oral mucous membrane is dry. No pharyngeal erythema or thrush. Neck shows trachea central, no thyromegaly. LUNGS: Unlabored breathing, clear to auscultation anteriorly. No wheeze or crackle. HEART: S1-S2 regular rate and rhythm. ABDOMEN: Soft, no tenderness. Left hand is currently dressed up. No obvious drainage on the dressing. NEUROLOGICAL: The patient is awake, alert, oriented and mood and affect normal. LABS: Hemoglobin is 14.3, white count 15.3, BUN of 11, creatinine 0.95. Blood culture so far pending. Local cultures pending. DIAGNOSTIC IMPRESSION: Patient with left hand abscess. This patient failed to respond to outpatient antibiotic therapy with worsening and is status post drainage this afternoon. We will need to cover for the gram-positive skin sergio, MRSA and strep. Clinically doubt a gram-negative infection. This patient apparently did have some intolerance to the vancomycin that was started yesterday. PLAN: 1. Discontinue Zosyn. 2. Start the patient on daptomycin 4 mg/kg daily. 3. We will follow up on his clinical condition and further adjust medication if needed. Thank you for this consultation. Will follow this patient along with you. MMODL / IJN: [id number] /
[2020-10-23 08:21] LABS: Basophils % (A) 0 %; Eosinophils # (A) 0.2 k/uL (0-0.7); Eosinophils % (A) 4 %; HCT 41.4 % (39.0-53.0); HGB 13.8 gm/dL (13.0-17.5); Lymphocytes # (A) 1.6 k/uL (1.0-4.8); Lymphocytes % (A) 29 %; MCH 29.2 pg (25.0-35.0); MCHC 33.3 g/dL (31.0-37.0); MCV 87.7 fL (80.0-100.0); Mean Platelet Volume 7.6; Monocytes # (A) 0.5 k/uL (0-1.0); Monocytes % (A) 8 %; Neutrophils # (A) 3.3 k/uL (1.3-7.7); Neutrophils % (A) 57 %; Platelet Count 234 k/uL (150-450); RBC 4.72 m/uL (4.30-5.90); RDW 13.1 % (11.5-15.5); WBC 5.7 k/uL (3.8-10.6)
[2020-10-23] MEDS: HYDROcodone/APAP 5-325MG 1 EACH TAB PO PRN ×4 (08:43→22:12)
--- NOTE | 2020-10-23 11:57 | P.PN ---
Progress Note - Text Progress Note Date: 10/23/20 Orthopedics: History of present illness: Patient is a pleasant 25-year-old male who is seen and examined at bedside for follow up evaluation for his left hand. He is status post left hand deep abscess excisional debridement with incision and drainage with packing of iodoform gauze performed yesterday, 10/22/2020. Postoperatively he is having better pain control. He has less pain in the fingers of his left hand. He is having as pain at the left medial elbow. The streaking up his left arm has improved. He is being seen and examined by Dr. Martinez in infectious disease. Wound cultures are currently pending. He is currently on daptomycin he continues to receive IV Dilaudid and [place] for pain control. We're planning to wean off of IV Dilaudid. Physical Exam: Patient is awake, alert, and oriented 3 Vital signs stable Good chest excursion with deep inspiration and expiration Resting over the left hand is clean, dry, and intact Patient is able to wiggle all fingers of the left hand without difficulty Neurovascularly intact left upper extremity Mild warmth with slight erythema and mild swelling at the medial left elbow Streaking up the left upper extremity has improved Patient is able to perform adequate range of motion of the left elbow and shoulder of the left upper extremity without difficulty Assessment: Status post left hand deep abscess excisional debridement with incision and drainage with packing of iodoform gauze Left hand pain Left medial elbow pain Plan: 1. Patient will continue with conservative treatment following status post left hand deep abscess excisional debridement with incision and drainage with packing of iodoform gauze. Patient will continue with packing change to be performed by nursing daily as ordered. Patient will continue be seen and examined by Dr. Martinez in infectious disease. Patient will continue on daptomycin per his recommendations. Medicine may be changed at his discretion following culture results. Patient should continue to keep dressing over the left hand clean, dry, and intact. He should avoid excessive activities of the left upper extremity. We will continue to follow patient closely. We will plan for discharge home once patient is cleared by infectious disease and started on outpatient antibiotic regimen. 2. Continue pain control with Dilaudid and [place]; we will plan to increase [place] 5 mg/325 mg to 1-2 tabs every 6 hours as needed for pain while weaning off of IV Dilaudid
[2020-10-23] MEDS: DAPTOmycin 500 MG in SODIUM CHLORIDE 0.9% 50 ML IVPB SCH (22:38)
--- NOTE | 2020-10-23 23:48 | PN ---
PROGRESS NOTE DATE OF SERVICE: 10/23/2020 REASON FOR FOLLOW UP: Left hand MRSA abscess. INTERVAL HISTORY: Patient is currently afebrile. The patient is breathing comfortably. Overall pain and discomfort to the left foot is slight decreased in intensity. No chest pain, shortness of breath or cough. No abdominal pain or diarrhea. PHYSICAL EXAMINATION: Blood pressure is 127/76, pulse of 77, temperature 98.3. He is 99% on room air. General description is a middle aged male in no distress. Respiratory system: Unlabored breathing. Clear to auscultation anteriorly. Heart S1, S2. Regular rate and rhythm. Abdomen soft, no tenderness. Left hand currently dressed up. No obvious drainage on the dressing. LABS: Hemoglobin 13.8, white count 5.7, creatinine 0.95. Blood culture negative. DIAGNOSTIC IMPRESSION AND PLAN: Patient with MRSA left hand abscess status post I and D. We will keep the patient on daptomycin as the patient apparently did have some issue with vancomycin. Continue antibiotics therapy for at least 24 to 48 hours before transition to oral for outpatient antibiotic therapy after re-evaluation of the wound tomorrow. MMODL / IJN: [id number] /
[2020-10-24] MEDS: SODIUM CHLORIDE 0.9% 1,000 ML IV SCH ×2 (05:38→19:26)
[2020-10-24] MEDS: HYDROcodone/APAP 5-325MG 1 EACH TAB PO PRN (08:42)
[2020-10-24] MEDS: HYDROmorphone 1 MG/ML 1 ML SYRINGE IVP PRN (11:29)
--- NOTE | 2020-10-24 11:56 | P.PN ---
Progress Note - Text Progress Note Date: 10/24/20 Orthopedics: History of present illness: Patient is a pleasant 25-year-old male who is seen and examined at bedside for follow up evaluation for his left hand. He is status post left hand deep abscess excisional debridement with incision and drainage with packing of iodoform gauze performed yesterday, 10/22/2020. Postoperatively he is having better pain control. He has less pain in the fingers of his left hand. He feels the swelling has improved. He is having less pain at the left medial elbow. The streaking up his left arm has improved. He is being seen and examined by Dr. Martinez in infectious disease who is recommending IV antibiotics over the next 24-48 hours before transitioning to oral medications. Wound cultures are currently pending. He is currently on daptomycin he continues to receive IV Dilaudid and Norman for pain control. We're planning to wean off of IV Dilaudid. Physical Exam: Patient is awake, alert, and oriented 3 Vital signs stable Good chest excursion with deep inspiration and expiration Dressing over the left hand is clean, dry, and intact Patient is able to wiggle all fingers of the left hand without difficulty Patient is able to move all fingers of the left hand without difficulty Neurovascularly intact left upper extremity Mild warmth with slight erythema and mild swelling at the medial left elbow Streaking up the left upper extremity has improved Patient is able to perform adequate range of motion of the left elbow and shoulder of the left upper extremity without difficulty Dressing is removed during physical examination and iodoform gauze is removed Evidence of approximately 2 cm open incision approximately 1 cm deep without active drainage from the incision site Significant pain with removal of iodoform gauze Iodoform gauze is repacked in the wound Dressing is reapplied with nonstick dressing and stretch wrap Assessment: Status post left hand deep abscess excisional debridement with incision and drainage with packing of iodoform gauze Left hand pain Left medial elbow pain Plan: 1. Patient will continue with conservative treatment following status post left hand deep abscess excisional debridement with incision and drainage with packing of iodoform gauze. Dressing was not changed yesterday. Dressing was removed during physical examination with iodoform gauze removed. Iodoform gauze was repacked and the wound site and wound was redressed. We would now currently plan to continue with daily dressing changes with nursing as ordered. Patient will continue with packing change to be performed by nursing daily as ordered. Iodoform gauze is in the patient's room with the patient's name on the bottle. Patient will continue be seen and examined by Dr. Martinez in infectious disease. Patient will continue on daptomycin per his recommendations. He will continue with antibiotic IV medication 24-48 hours per infectious disease. Medicine may be changed at his discretion following culture results. Patient should continue to keep dressing over the left hand clean, dry, and intact. He should avoid excessive activities of the left upper extremity. We will continue to follow patient closely. We will plan for discharge home once patient is cleared by infectious disease and started on outpatient antibiotic regimen. 2. Continue pain control with Dilaudid and Norman; we will plan to increase Norman 5 mg/325 mg to 1-2 tabs every 6 hours as needed for pain while weaning off of IV Dilaudid
[2020-10-24 20:11] VITALS: RESP 16
[2020-10-24] MEDS: DAPTOmycin 500 MG in SODIUM CHLORIDE 0.9% 50 ML IVPB SCH (23:51)
--- NOTE | 2020-10-25 01:12 | PN ---
PROGRESS NOTE DATE OF SERVICE: 10/24/2020 REASON FOR FOLLOWUP: Left hand MRSA abscess. INTERVAL COURSE: The patient is currently afebrile. The patient is feeling better. Breathing comfortably. Overall pain and discomfort to the left hand decreased. The patient denies having any chest pain, shortness of breath or cough. No abdominal pain or diarrhea. PHYSICAL EXAMINATION: Blood pressure 130/69 with a pulse of 71, temperature 98.1. He is 100% room air. General description is a young male up in the room in no distress. RESPIRATORY SYSTEM: Unlabored breathing, clear to auscultation anteriorly. HEART: S1, S2. Regular rate and rhythm. ABDOMEN: Soft, no tenderness. Left hand overall swelling and redness has decreased, no drainage on the dressing. DIAGNOSTIC IMPRESSION AND PLAN: Patient with left hand abscess secondary to MRSA. Blood culture has been negative. With overall improvement, may consider short course of IV daptomycin coverage versus oral Bactrim DS. Will re-evaluate the wound tomorrow. Continue supportive care. MMODL / IJN: [id number] /
[2020-10-25 08:10] VITALS: BP 117/66; PULSE 67; TEMP 97.7
[2020-10-25] MEDS: HYDROmorphone 1 MG/ML 1 ML SYRINGE IVP PRN (12:19)
--- NOTE | 2020-10-25 13:17 | P.DS ---
Providers Date of admission: 10/21/20 13:03 Expected date of discharge: 10/25/20 Attending physician: Steve Gayle Consults: 10/22/20 13:09 Consult Physician Urgent Consulting Provider: Mac Martinez Consult Reason/Comments: antibiotic recommendations and wound management Do you want consulting provider notified?: Yes Primary care physician: Tom Urban - Discharge Diagnosis(es) (1) Abscess of left hand Current Visit: Yes Status: Acute Hospital Course: The patient is a 25-year-old male presented to the emergency department last week with continued pain and swelling to the left hand. He has been seen by urgent care and the emergency department on 2 occasions for this hand and a bedside I&D of the abscess to the palm of his left hand was completed. He states that he noticed some swelling to the hand proximally 5 days ago. It had gotten progressively worse. He has been running fevers at home and has noticed red streaking up the arm. He was admitted to our service for IV antibiotics and further surgical evaluation. He underwent an I&D on 10/22/[address] Gayle and the hand has been packed daily since. Today, the patient states that the hand is feeling better. His vital signs have been stable and he has been afebrile. Exam of the hand reveals a recently changed dressing that is clean and dry. Finger motion is slightly limited due to swelling and pain. No proximal red streaking present. Neurological status is intact. Circulatory status is normal, capillary refill <2 seconds. The patient is stable for discharge home on oral antibiotics per infectious disease. He will complete his own dressing changes at home. Patient Condition at Discharge: Stable Plan - Discharge Summary New Discharge Prescriptions: New Sulfamethox-Tmp 800-160Mg [Bactrim DS 800-160 mg] 1 tab PO Q12HR #20 tab HYDROcodone/APAP 5-325MG [[place] 5] 1 each PO Q6HR PRN #30 tab PRN Reason: Pain Continue Adalimumab [Humira Pen Crohn's-Uc-Hs] 40 mg SQ Q14D Fluocinolone Acetonide [Lidex Soln] 1 applic TOPICAL DAILY PRN PRN Reason: Rash ON SCALP Discontinued Sulfamethox-Tmp 800-160Mg [Bactrim DS 800-160 mg] 2 tab PO Q12HR #40 tab Acetaminophen-Codeine 300-30mg [Tylenol w/codeine #3] 1 tab PO Q6H PRN 3 Days #12 tablet PRN Reason: Pain Discharge Medication List Adalimumab [Humira Pen Crohn's-Uc-Hs] 40 mg SQ Q14D 10/20/20 [History] Fluocinolone Acetonide [Lidex Soln] 1 applic TOPICAL DAILY PRN 10/20/20 [History] HYDROcodone/APAP 5-325MG [[place] 5] 1 each PO Q6HR PRN #30 tab 10/25/20 [Rx] Sulfamethox-Tmp 800-160Mg [Bactrim DS 800-160 mg] 1 tab PO Q12HR #20 tab 10/25/20 [Rx] Follow up Appointment(s)/Referral(s): Tom Urban MD [Primary Care Provider] - 1-2 days Steve Gayle MD [STAFF PHYSICIAN] - 1 Week Mac Martinez MD [STAFF PHYSICIAN] - 1 Week Activity/Diet/Wound Care/Special Instructions: Change hand dressing daily and repack Keep dressing clean and dry Continue to move fingers gently Follow up with Dr. Gayle in 1 week [facility] with any questions or concerns, . Discharge Disposition: HOME SELF-CARE
--- NOTE | 2020-10-25 14:19 | P.PN ---
Subjective Progress Note Date: 10/25/20 HISTORY OF PRESENT ILLNESS This is a 25-year-old male patient admitted to the hospital for a left hand MRSA abscess under treatment with IV daptomycin. The pain is currently controlled to the left hand. No fevers or chills. No chest pain or shortness of breath. No abdominal pain, no diarrhea. PHYSICAL EXAMINATION Gen: This is a 25-year-old male patient sitting up in a chair and appears comfortable and in no acute distress. HEENT: Head is atraumatic, normocephalic. Pupils equal, round. Sclerae is anicteric. NECK: Supple. No JVD. No lymphadenopathy. LUNGS: Clear to auscultation. No wheezes or rhonchi. No intercostal retractions. HEART: Regular rate and rhythm. No murmur. ABDOMEN: Soft. Bowel sounds are present. No masses. No tenderness. EXTREMITIES: No pedal edema. No calf tenderness. Decreased redness and erythema to the left hand, packing in place to the wound. NEUROLOGICAL: Patient is awake, alert and oriented x3. ASSESSMENT Left hand MRSA abscess PLAN Bactrim DS 10 day course Follow-up in one week Patient is cleared from infectious disease for discharge home. The above dictated assessment and findings were discussed with Dr. Martinez. The impression and plan of care have been directed as dictated. Adenike Mera nurse practitioner acting as scribe for Dr. Martinez. Objective - Vital Signs Vital signs: Vital Signs Temp 97.7 F 10/25/20 08:00 Pulse 67 10/25/20 08:00 Resp 16 10/25/20 08:00 BP 117/66 10/25/20 08:00 Pulse Ox 99 10/25/20 08:00 Intake & Output 10/24/20 10/25/20 10/25/20 18:59 06:59 18:59 Intake Total 500 2420 120 Output Total 1 Balance 499 2420 120 Intake: Intake, IV Titration 950 Amount DAPTOmycin 500 mg In 50 Sodium Chloride 0.9% 50 ml @ 100 mls/hr IVPB Q24H JON Rx#:[id number] Sodium Chloride 0.9% 1, 900 000 ml @ 75 mls/hr IV . [id number] JON Rx#:[id number] Oral 500 1470 120 Output: Stool 1 Other: Voiding Method Toilet # Voids 3 2 - Labs CBC & Chem 7: 10/23/20 07:16 10/21/20 11:30 Labs: Microbiology - Last 24 Hours (Table) 10/22/20 13:18 Gram Stain - Final Hand - Left Wound Culture - Final Methicillin resist S. aureus 10/22/20 13:18 Gram Stain - Final Hand - Left Wound Culture - Final Methicillin resist S. aureus 10/21/20 11:30 Blood Culture - Preliminary Blood No Growth after 72 hours 10/22/20 13:18 Anaerobic Culture - Preliminary Hand - Left 10/22/20 13:18 Anaerobic Culture - Preliminary Hand - Left
[2020-10-25] MEDS: SODIUM CHLORIDE 0.9% 1,000 ML IV SCH (14:20)
== END 2020-10-25 14:15 | disposition home or self-care (01) | DRG 581 ==
LOC: EC 10:41 → 5NMEDONC 13:03
PROVIDERS: ADMIT Orthopaedic Surgery; ATTEND Orthopaedic Surgery
PROC: 0X9K3ZZ Drainage of Left Hand, Percutaneous Approach (ICD-10-PCS; 2020-10-21)
PROC: 0J9K0ZZ Drainage of Left Hand Subcutaneous Tissue and Fascia, Open Approach (ICD-10-PCS; principal; 2020-10-22 10:10)
DX: L02.512 Cutaneous abscess of left hand (principal); I89.1 Lymphangitis; L40.9 Psoriasis, unspecified; B95.62 Methicillin resistant Staphylococcus aureus infection as the cause of diseases classified elsewhere; Z88.8 Allergy status to other drugs, medicaments and biological substances; Z88.1 Allergy status to other antibiotic agents; Z98.890 Other specified postprocedural states
CPT/HCPCS: 10060; 36415; 80053; 83605; 85025; 87040; 87070; 87075; 87077; 87186; 87205; 96365; 96367; 96375; 99284

== ENCOUNTER 2020-12-30 21:20 | Emergency (ER) | payer OTHER ==
[2020-12-30 21:37] VITALS: BP 98/73; PULSE 78; RESP 17; TEMP 98.7
--- NOTE | 2020-12-30 22:14 | ED ---
Lower Extremity Injury HPI - General Chief Complaint: Extremity Injury, Lower Stated Complaint: Knee Pain/swelling Time Seen by Provider: 12/30/20 21:42 Source: patient, RN notes reviewed Mode of arrival: ambulatory Limitations: no limitations - History of Present Illness Initial Comments: Patient is a 25-year-old male that comes emergency Department complaining of left knee tenderness. He noted that he just recently had surgery for MRSA of his left hand and wanted to come in to make sure that his knee was not also MRSA as he looked up on the Internet that if you had in one spot he could get another. He noted that his knee was tender red and hot at his tibial plateau. She denied any chest pain shortness breath headache nausea vomiting diarrhea constipation fever fatigue chills. - Related Data Home Medications Medication Instructions Recorded Confirmed Adalimumab [Humira Pen 40 mg SQ Q14D 10/20/20 10/21/20 Crohn's-Uc-Hs] Fluocinolone Acetonide [Lidex Soln] 1 applic TOPICAL DAILY PRN 10/20/20 10/21/20 Previous Rx's Medication Instructions Recorded HYDROcodone/APAP 5-325MG [[place] 5] 1 each PO Q6HR PRN #30 tab 10/25/20 Sulfamethox-Tmp 800-160Mg [Bactrim 1 tab PO Q12HR #20 tab 10/25/20 DS 800-160 mg] Doxycycline Monohydrate [Monodox] 100 mg PO Q12HR #20 cap 12/30/20 Allergies Allergy/AdvReac Type Severity Reaction Status Date / Time gluten Allergy Nausea & Verified 12/30/20 21:36 Vomiting & Diarrhea vancomycin Allergy Itching Verified 12/30/20 21:36 Review of Systems ROS Statement: Those systems with pertinent positive or pertinent negative responses have been documented in the HPI. ROS Other: All systems not noted in ROS Statement are negative. Past Medical History Past Medical History: No Reported History Additional Past Medical History / Comment(s): psoriasis History of Any Multi-Drug Resistant Organisms: MRSA Date of last positivie culture/infection: 10/22/20 MDRO Source:: MRSA LEFT HAND Additional Past Surgical History / Comment(s): nasal surgery deviated septum, teeth pulled (5) Past Psychological History: No Psychological Hx Reported Smoking Status: Never smoker Past Alcohol Use History: None Reported Past Drug Use History: None Reported General Exam Limitations: no limitations General appearance: alert, in no apparent distress Head exam: Present: atraumatic, normocephalic, normal inspection Eye exam: Present: normal appearance, PERRL, EOMI. Absent: scleral icterus, conjunctival injection, periorbital swelling ENT exam: Present: normal exam, mucous membranes moist Neck exam: Present: normal inspection. Absent: tenderness, meningismus, lymphadenopathy Respiratory exam: Present: normal lung sounds bilaterally. Absent: respiratory distress, wheezes, rales, rhonchi, stridor Cardiovascular Exam: Present: regular rate, normal rhythm, normal heart sounds. Absent: systolic murmur, diastolic murmur, rubs, gallop, clicks GI/Abdominal exam: Present: soft, normal bowel sounds. Absent: distended, tenderness, guarding, rebound, rigid Extremities exam: Present: normal inspection, full ROM, normal capillary refill. Absent: tenderness, pedal edema, joint swelling, calf tenderness Neurological exam: Present: alert, oriented X3, CN II-XII intact Psychiatric exam: Present: normal affect, normal mood Skin exam: Present: warm, dry, intact, normal color, vesicles (One small vesicle on the medial side of the tibial plateau of the left knee, mild erythema and tenderness and warmth to the touch.). Absent: rash Course Vital Signs 12/30/20 21:32 Temperature 98.7 F Pulse Rate 78 Respiratory 17 Rate Blood Pressure 98/73 O2 Sat by Pulse 98 Oximetry Medical Decision Making - Medical Decision Making 25-year-old male complaining of left knee tenderness and small lesion. Case was discussed with Dr. Vargas, was decided the patient to discharge home with antibiotic therapy as the area was nonfluctuant, nondraining. Disposition Clinical Impression: Folliculitis Disposition: HOME SELF-CARE Condition: Stable Instructions (If sedation given, give patient instructions): Folliculitis (ED) Additional Instructions: Please return to the Emergency Department if symptoms worsen or any other concerns. Take antibiotics as prescribed until complete. Follow-up primary care 1-2 days. Take any pain medication or anti-inflammatories for management. Prescriptions: Doxycycline Monohydrate [Monodox] 100 mg PO Q12HR #20 cap Is patient prescribed a controlled substance at d/c from ED?: No Referrals: Tom Urban MD [Primary Care Provider] - 1-2 days Time of Disposition: 22:25
== END 2020-12-30 22:44 | disposition home or self-care (01) ==
LOC: EC 21:20
DX: L73.9 Follicular disorder, unspecified (principal); L40.9 Psoriasis, unspecified; Z79.899 Other long term (current) drug therapy; Z91.048 Other nonmedicinal substance allergy status; Z88.1 Allergy status to other antibiotic agents; Z86.14 Personal history of Methicillin resistant Staphylococcus aureus infection
CPT/HCPCS: 99283